=== PATIENT | male | born 1970 | race African-American/Black ===

== ENCOUNTER 2021-11-13 11:03 | Emergency (ER) | payer OTHER ==
[2021-11-13] MEDS ORDERED: Dextrose 50% Abboject 50 ML SYRINGE ONE (11:07)
[2021-11-13 12:19] LABS: #Basophils 0.1 thou/uL (0.0-0.2); #Eosinphils 0.1 thou/uL (0.0-0.7); #Lymphocytes 1.2 thou/uL (1.20-3.40); #Monocytes 0.6 thou/uL (0.11-0.59); #Neutrophils 5.1 thou/uL (1.40-6.50); %Basophils 0.9 % (0.0-1.0); %Lymphocytes 17.1 % (21.0-51.0); %Monocytes 8.8 % (0.0-10.0); %Neutrophils 72.1 % (42.0-75.0); Hemoglobin 14.4 g/dL (14.0-18.0); Mean Corpuscular HGB CONC 30.5 g/dL (32.0-36.0); Mean Corpuscular Hemoglobin 27.5 pg (27.0-31.0); Mean Corpuscular Volume 90.1 fL (78.0-98.0); Mean Platelet Volume 8.5 fL (7.4-10.4); Platelet Count 202 thou/uL (130-400); RBC Distribution Width 12.5 % (11.5-14.5); Red Blood Cell (RBC) Count 5.23 mill/uL (4.70-6.10); White Blood Cell (WBC) Count 7.1 thou/uL (4.8-10.8)
[2021-11-13 12:22] LABS: ALT (SGPT) 12 U/L (8-55); AST (SGOT) 14 U/L (5-34); Albumin 3.9 g/dL (3.5-5.0); Alkaline Phosphatase 75 U/L (40-110); Anion Gap 15 mmol/L (10-20); BUN (Urea Nitrogen) 12 mg/dL (8.4-25.7); Bilirubin, Total 0.3 mg/dL (0.2-1.2); Calc. Creatinine Clearance 0 mL/min (70-130); Calcium 8.6 mg/dL (7.8-10.44); Carbon Dioxide 21 mmol/L (22-29); Chloride 105 mmol/L (98-107); Estimated GFR 91; Globulin 2.8 g/dL (2.4-3.5); Glucose 132 mg/dL (70-105); Protein, Total 6.7 g/dL (6.0-8.3); Sodium 137 mmol/L (136-145)
[2021-11-13 12:33] LABS: PTT 29.7 sec (22.9-36.1); Prothrombin Time 13.2 sec (12.0-14.7)
[2021-11-13] MEDS ORDERED: Aspirin Chewable 81 MG TAB ONE (13:16)
[2021-11-13] MEDS ORDERED: Iopamidol-370 76% 500 ML 1 ML ONE (13:38)
[2021-11-13 14:05] LABS: SARS-CoV-2 NAA Rapid Test Not Detected (NotDetected)
== END 2021-11-13 18:36 | disposition short-term general hospital (02) ==
LOC: ERS 11:03
DX: R47.1 Dysarthria and anarthria (principal); Z20.822 Contact with and (suspected) exposure to COVID-19; I10 Essential (primary) hypertension; F17.210 Nicotine dependence, cigarettes, uncomplicated; Z79.899 Other long term (current) drug therapy
CPT/HCPCS: 36415; 70450; 70496; 70498; 71045; 80053; 84484; 85025; 85610; 85730; 93005; 94760; J7999; Q9967; U0002